=== PATIENT | female | born 1950 | race Caucasian/White ===

== ENCOUNTER 2021-03-06 11:22 | Observation (INO) | payer MEDICARE ==
[~2021-03-06] VITALS: Ht 165.1 cm; Wt 89.0 kg
[2021-03-06 12:19] LABS: HEMATOCRIT 43.3 % (37.0-47.0); HEMOGLOBIN 14.1 g/dl (12.0-16.0); IMMATURE GRANULOCYTES 0.2 % (0.0-5.0); MEAN CELL VOLUME 86.3 fL CALC (80.0-100.0); MEAN CORPUSCULAR HGB 28.1 pG CALC (26.0-32.0); MEAN CORPUSCULAR HGB CONC 32.6 g/dL CAL (32.0-36.0); NEUT# 5.86 thou/uL (2.00-7.15); RED BLOOD COUNT 5.02 mill/uL (4.20-5.60); RED CELL DISTRI WIDTH 12.8 % (11.5-15.5)
[2021-03-06 12:25] LABS: ALBUMIN 4.4 g/dL (3.2-5.0); ALKALINE PHOSPHATASE 66 u/l (38-126); ANION GAP 13 (6-22 (CALC)); BILIRUBIN, TOTAL 0.8 mg/dL (0.0-1.4); BUN 15 mg/dL (8-23); BUN/CREATININE RATIO 13 (12-20 (CALC)); CARBON DIOXIDE 27 mmol/l (22-30); CHLORIDE 103 mmol/l (95-108); CREATININE 1.1 mg/dL (0.5-1.0); GFR 49 ML/MIN (>=60 (CALC)); GFR FOR AFR.AMER. 59 ML/MIN (>=60 (CALC)); POTASSIUM 4.1 mmol/l (3.5-5.1); SGOT/AST 29 u/l (9-36); SODIUM 138 mmol/l (137-146); TOTAL PROTEIN 8.1 g/dL (6.3-8.2)
[2021-03-06] MEDS ORDERED: PEPCID20 MG PO (14:36)
[2021-03-06] MEDS ORDERED: ATORVASTATIN CA40 MG PO (21:06)
[2021-03-06] MEDS ORDERED: CARVEDILOL6.25 MG PO (21:06)
[2021-03-06] MEDS ORDERED: PRILOSEC DR PO (21:08)
[2021-03-06] MEDS ORDERED: NORVASC5 M1 PO (21:08)
[2021-03-06] MEDS ORDERED: ASPIRIN EC LOW81 MG PO (21:09)
[2021-03-06] MEDS ORDERED: LOSARTAN POTASS50 MG PO (21:09)
[2021-03-06 22:15] VITALS: BP 160/90
[2021-03-07 00:55] VITALS: BP 150/80
[2021-03-07 04:26] VITALS: BP 170/84
[2021-03-07 06:24] LABS: HEMATOCRIT 41.7 % (37.0-47.0); HEMOGLOBIN 13.8 g/dl (12.0-16.0); MEAN CELL VOLUME 85.8 fL CALC (80.0-100.0); MEAN CORPUSCULAR HGB 28.4 pG CALC (26.0-32.0); MEAN CORPUSCULAR HGB CONC 33.1 g/dL CAL (32.0-36.0); RED BLOOD COUNT 4.86 mill/uL (4.20-5.60); RED CELL DISTRI WIDTH 12.6 % (11.5-15.5)
[2021-03-07 06:37] LABS: CHOLESTEROL HDL RATIO 3.5 (<4.4 (CALC)); CREATININE 1.1 mg/dL (0.5-1.0); MAGNESIUM 1.7 mg/dL (1.6-2.3); POTASSIUM 3.6 mmol/l (3.5-5.1)
[2021-03-07 11:36] VITALS: BP 170/81
[2021-03-07 15:53] VITALS: BP 147/88
== END 2021-03-07 16:30 | disposition home or self-care (01) ==
LOC: ED 11:22 → ED-I 13:35 → ED 15:51 → MS2 15:52
PROVIDERS: Family Medicine; ADMIT Hospitalist; ATTEND Hospitalist
DX: R07.9 Chest pain, unspecified (principal); N17.9 Acute kidney failure, unspecified; I10 Essential (primary) hypertension; E78.5 Hyperlipidemia, unspecified; F03.90 Unspecified dementia, unspecified severity, without behavioral disturbance, psychotic disturbance, mood disturbance, and anxiety; Z20.822 Contact with and (suspected) exposure to COVID-19
CPT/HCPCS: G0378; J1650